=== PATIENT | female | born 1985 | race Caucasian/White ===

== ENCOUNTER 2017-09-27 23:15 | Emergency (ER) | payer OTHER, SELFPAY | END 2017-09-27 23:25 | disposition left against medical advice (07) | LOC: ER 23:38 | PROVIDERS: Emergency Provider Emergency Medicine | DX: Z53.29 Procedure and treatment not carried out because of patient's decision for other reasons (principal) | CPT/HCPCS: 99211 ==

== ENCOUNTER 2019-02-12 12:24 | Emergency (ER) | payer OTHER, SELFPAY ==
--- NOTE | 2019-02-12 12:32 | CT_ITS ---
CT abdomen pelvis wo con CLINICAL HISTORY: Hematuria, history of renal stones, left-sided abdominal pain TECHNIQUE: Axial images obtained with sagittal and coronal reformats. All CT scans at the facility use one or more dose reduction, viz: automated exposure control, ma/kV adjustment per patient size (including targeted exams where dose is matched to indication, i.e. head), or iterative reconstruction technique. COMPARISON: CT scan abdomen pelvis stone protocol 12/05/2018 PROCEDURE: Oral Contrast:None IV Contrast: 0 ml IV Isovue Optiray 350 was injected intravenously. FINDINGS: Lung bases: Clear and there is no pleural fluid ABDOMEN: Liver: There is mild generalized hepatomegaly basically stable from previous studies. There are no focal lesions. Gallbladder: Postcholecystectomy Pancreas: No masses or peripancreatic fluid collections. Spleen: Unremarkable. Adrenals: Unremarkable Kidneys/ureters: The kidneys are normal size. Again noted is a small 2 to 3 mm nonobstructing calculus lower pole left kidney. There is no hydronephrosis of either kidney. Stomach bowel: The stomach and small bowel appear normal. There is a moderately large amount stool throughout the colon. Peritoneum: No abnormal fluid collections. No obvious inflammatory changes. Lymph nodes: No enlarged lymph nodes apparent. Vasculature: No evidence of abdominal aortic aneurysm. No retroperitoneal hemorrhage evident. Bones: Unremarkable appearing bony structures. No lytic or blastic changes. No obvious fractures. PELVIS: Reproductive: The uterus is normal in size. Again noted is the exophytic mass extending off the right side of the uterus slightly hyperdense when compared to the uterine density but likely representing a fibroid. Bladder: Partially decompressed, there is no free fluid in the cul-de-sac. Appendix: I do not definitely identify the appendix but there are no pericecal inflammatory changes. IMPRESSION: 1. Stable generalized hepatomegaly 2. Tiny nonobstructing calculus lower pole left kidney 3. Stable slightly hyperdense mass arising from and/or abutting the right lateral wall the uterus and likely an exophytic fibroid
[2019-02-12 12:45] VITALS: BP 195/123; PULSE 101; RESP 18; TEMP 36.7; O2SAT 96; BMI 54.1
--- NOTE | 2019-02-12 12:45 | [facility].EDGENADL ---
ED Disposition Clinical Impression: Flank pain, Hematuria, UTI (urinary tract infection), Flank pain, acute Disposition: Home, Self-Care Condition on Discharge: Good Instructions: Urinary Tract Infection, DI for Urinary Tract Infection (UTI) Prescriptions: cephALEXin [Keflex 500mg Cap] 1,000 mg PO BID 7 Days #28 cap Hydrocodone/Acetaminophen [[place] 7.5-325 Tablet] 1 tab PO TID PRN 3 Days #8 tab PRN Reason: Moderate Pain Referrals: Provider,MD Ian [Primary Care Provider] - Leroy Goodman MD [Staff Physician] - Time of Disposition: 14:11 - Critical Care Critical Care Time: No Attestation: On 02/12/19, the high probability of a clinically significant, sudden or life threatening deterioration of the following system(s) required my full and direct attention, intervention and personal management. The time I documented below is in addition to time spent performing reported procedures but includes the following listed in this critical care notation. Medical Decision Making - Medical Records Medical records reviewed: Yes: I reviewed the patient's medical records. - Bryce Inquiry Pt receiving controlled substance: No Bryce was queried for this patient: No Vital Signs: 02/12/19 12:45 02/12/19 13:59 Temperature 98.0 F Temperature Source Oral Pulse Rate [Left Radial] 101 H 98 H Respiratory Rate 18 Blood Pressure [Right Arm] 195/123 H 164/99 H Blood Pressure Mean [Right Arm] 147 120 Blood Pressure Source [Right Arm] Automatic Cuff Blood Pressure Position [Right Arm] Sitting 02 Sat by Pulse Oximetry 96 95 Oxygen Delivery Method Room Air - Lab Data Lab results reviewed: Yes: I reviewed the patient's lab results. Lab Results 02/12/19 10:40: Urine Color Red, Urine Appearance Turbid, Urine pH 6.5, Ur Specific [place] 1.010, Urine Protein 2+, Urine Glucose (UA) Negative, Urine Ketones Negative, Urine Blood 3+, Urine Nitrate Positive, Urine Bilirubin Negative, Urine Urobilinogen 0.2, Ur Leukocyte Esterase Trace 02/12/19 12:40: Urine HCG, Qual Negative 02/12/19 12:40: WBC 5.3, RBC 4.17 L, Hgb 10.4 L, Hct 34.2 L, MCV 82.1, MCH 24.9 L, MCHC 30.4 L, RDW 16.7, Plt Count 316, MPV 7.8, Neut % (Auto) 54.7, Lymph % (Auto) 35.3, [place] % (Auto) 6.4, Eos % (Auto) 2.9, Baso % (Auto) 0.7, Neut # (Auto) 2.9, Lymph # (Auto) 1.9, [place] # (Auto) 0.3, Eos # (Auto) 0.2, Baso # (Auto) 0.0 02/12/19 12:40: Sodium 140, Potassium 4.2, Chloride 103, Carbon Dioxide 22, Anion Gap 19.2 H, BUN 15, Creatinine 0.69, Estimated Creat Clear 100, Estimated GFR 98, Est GFR ( Amer) 119, Glucose 234 H, Calcium 8.5 Result diagrams: 02/12/19 12:40 02/12/19 12:40 Orders (Tests/Meds): ED MEDICATIONS Discontinued Medications Generic Name Dose Route Start Last Admin Trade Name Freq PRN Reason Stop Dose Admin Morphine Sulfate 4 mg 02/12/19 12:43 02/12/19 13:26 Morphine 4mg/Ml Syringe IV 02/12/19 12:44 4 mg ONCE ONE Administration Ondansetron HCl 4 mg 02/12/19 12:43 02/12/19 13:27 Zofran 4mg/2ml Vial IV 02/12/19 12:44 4 mg ONCE ONE Administration ORDERS Category Date Time Status UA [Urinalysis and Microscopic] Stat Lab 02/12/19 10:40 Results General Adult HPI - General Stated complaint: Severe pain in left side; blood in urine Time Seen by Provider: 02/12/19 12:45 Mode of Arrival: Ambulatory Source of Information: Patient Limitations: No Limitations - History of Present Illness HPI narrative: left flank pain, difficulty urinating, bloody urine . Appears to be on menses. States she's had kidney stones but previus CT's here show only nephrocalcinosis - Related Data Home Medications Medication Instructions Recorded Confirmed Allopurinol [Allopurinol 300mg 300 mg PO DAILY 07/12/18 08/27/18 tablet] Atorvastatin Calcium [Atorvastatin 20 mg PO DAILY 07/12/18 08/27/18 20mg Tab] Duloxetine HCl [Cymbalta] 60 mg PO DAILY 07/12/18 08/27/18 Fluoxetine HCl [Prozac] 40 mg PO D
--- NOTE | 2019-02-12 12:48 | ED_ITS ---
ED Disposition Clinical Impression: Flank pain, Hematuria, UTI (urinary tract infection), Flank pain, acute Disposition: Home, Self-Care Condition on Discharge: Good Instructions: Urinary Tract Infection, DI for Urinary Tract Infection (UTI) Prescriptions: cephALEXin [Keflex 500mg Cap] 1,000 mg PO BID 7 Days #28 cap Hydrocodone/Acetaminophen [[place] 7.5-325 Tablet] 1 tab PO TID PRN 3 Days #8 tab PRN Reason: Moderate Pain Referrals: Provider,MD Ian [Primary Care Provider] - Leroy Goodman MD [Staff Physician] - Time of Disposition: 14:11 - Critical Care Critical Care Time: No Attestation: On 02/12/19, the high probability of a clinically significant, sudden or life threatening deterioration of the following system(s) required my full and direct attention, intervention and personal management. The time I documented below is in addition to time spent performing reported procedures but includes the foll owing listed in this critical care notation. Medical Decision Making - Medical Records Medical records reviewed: Yes: I reviewed the patient's medical records. - Bryce Inquiry Pt receiving controlled substance: No Bryce was queried for this patient: No Vital Signs: 02/12/19 12:45 02/12/19 13:59 Temperature 98.0 F Temperature Source Oral Pulse Rate [Left Radial] 101 H 98 H Respiratory Rate 18 Blood Pressure [Right Arm] 195/123 H 164/99 H Blood Pressure Mean [Right Arm] 147 120 Blood Pressure Source [Right Arm] Automatic Cuff Blood Pressure Position [Right Arm] Sitting 02 Sat by Pulse Oximetry 96 95 Oxygen Delivery Method Room Air - Lab Data Lab results reviewed: Yes: I reviewed the patient's lab results. Lab Results 02/12/19 10:40: Urine Color Red, Urine Appearance Turbid, Urine pH 6.5, Ur Specific [place] 1.010, Urine Protein 2+, Urine Glucose (UA) Negative, Urine Ketones Negative, Urine Blood 3+, Urine Nitrate Positive, Urine Bilirubin Negative, Urine Urobilinogen 0.2, Ur Leukocyte Esterase Trace 02/12/19 12:40: Urine HCG, Qual Negative 02/12/19 12:40: WBC 5.3, RBC 4.17 L, Hgb 10.4 L, Hct 34.2 L, MCV 82.1, MCH 24.9 L, MCHC 30.4 L, RDW 16.7, Plt Count 316, MPV 7.8, Neut % (Auto) 54.7, Lymph % (Auto) 35.3, [place] % (Auto) 6.4, Eos % (Auto) 2.9, Baso % (Auto) 0.7, Neut # (Auto) 2.9, Lymph # (Auto) 1.9, [place] # (Auto) 0.3, Eos # (Auto) 0.2, Baso # (Auto) 0.0 02/12/19 12:40: Sodium 140, Potassium 4.2, Chloride 103, Carbon Dioxide 22, Anion Gap 19.2 H, BUN 15, Creatinine 0.69, Estimated Creat Clear 100, Estimated GFR 98, Est GFR ( Amer) 119, Glucose 234 H, Calcium 8.5 Result diagrams: 02/12/19 12:40 02/12/19 12:40 Orders (Tests/Meds): ED MEDICATIONS Discontinued Medications Generic Name Dose Route Start Last Admin Trade Name Freq PRN Reason Stop Dose Admin Morphine Sulfate 4 mg 02/12/19 12:43 02/12/19 13:26 Morphine 4mg/Ml Syringe IV 02/12/19 12:44 4 mg ONCE ONE Administration Ondansetron HCl 4 mg 02/12/19 12:43 02/12/19 13:27 Zofran 4mg/2ml Vial IV 02/12/19 12:44 4 mg ONCE ONE Administration ORDERS Category Date Time Status UA [Urinalysis and Microscopic] Stat Lab 02/12/19 10:40 Results
[2019-02-12 12:59] LABS: Basophils % 0.7 % (0.1-2.0); Eosinophils # 0.2 K/mm3 (0.0-0.4); Eosinophils % 2.9 % (0.1-12.0); Hematocrit 34.2 % (37.0-47.0); Hemoglobin 10.4 g/dL (12.2-16.2); Lymphocytes # 1.9 K/mm3 (0.7-4.5); Lymphocytes % 35.3 % (10-50); Mean Corpuscular HGB Conc 30.4 g/dL (31.8-35.4); Mean Corpuscular Hemoglobin 24.9 pg (27.0-31.2); Mean Corpuscular Volume 82.1 fl (81-99); Mean Platelet Volume 7.8 fl (7.4-10.4); Monocytes # 0.3 K/mm3 (0.1-1.0); Monocytes % 6.4 % (1.7-9.3); Neutrophils # 2.9 K/mm3 (1.8-7.8); Neutrophils % 54.7 % (37.0-80.0); Platelet Count 316 K/mm3 (142-424); Red Blood Count 4.17 M/mm3 (4.20-5.40); Red Cell Distribution Width 16.7 % (11.5-17.5); White Blood Count 5.3 K/mm3 (4.8-10.8)
[2019-02-12 13:01] LABS: Anion Gap 19.2 mEq/L (5-15); Blood Urea Nitrogen 15 mg/dL (7-18); Calcium 8.5 mg/dL (8.5-10.1); Carbon Dioxide 22 mmol/L (21.0-32.0); Chloride 103 mmol/L (98-107); Creatinine Clearance Estimated 100 mL/min (50-200); Creatinine,Serum 0.69 mg/dL (0.55-1.02); Estimated Glomerular Filt Rate 98 ml/min (>60); GFR (African American) 119 ML/MIN (>60); Glucose 234 mg/dL (74-106); Potassium 4.2 mmoL/L (3.5-5.1); Sodium 140 mmol/L (136-145)
[2019-02-12 13:23] LABS: Urine Pregnancy, HCG Qual. Negative (Negative)
[2019-02-12 13:48] LABS: Microscopic, Urine URINE MICROSCOPIC (MICROSCOPIC)
[2019-02-12 13:57] LABS: Appearance,Urine TURBID (Clear); Bilirubin,Urine Negative (Negative); Blood, Urine 3+ (Negative); Color,Urine RED (Yellow); Glucose,Urine (UA) Negative (Negative); Ketones,Urine Negative (Negative); Leukocyte Esterase,Urine TRACE (Negative); Nitrate,Urine POSITIVE (Negative); PH,Urine 6.5 (5.0-8.5); Protein,Urine 2+ (Negative); Urobilinogen,Urine 0.2 EU/dl (0.2)
[2019-02-12 13:59] VITALS: BP 164/99; PULSE 98; O2SAT 95
[2019-02-12 14:16] LABS: RBC,Urine TNTC #/hpf (0-3); Squamous Epithelial Cell,Urine Occasional #/hpf (0-5); Transitional Epi Cells,Urine OCC #/lpf (0-3)
[2019-02-12 14:44] VITALS: BP 189/121; PULSE 101; O2SAT 93
[2019-02-12 14:53] VITALS: BP 156/87; PULSE 97; RESP 20; TEMP 37.1; O2SAT 94
== END 2019-02-12 14:55 | disposition home or self-care (01) ==
PROVIDERS: Emergency Provider Emergency Medicine
DX: N30.01 Acute cystitis with hematuria (principal); E11.9 Type 2 diabetes mellitus without complications; Z79.84 Long term (current) use of oral hypoglycemic drugs; Z88.0 Allergy status to penicillin
CPT/HCPCS: 74176; 80048; 81001; 81025; 85025; 96367; 96374; 96375; 99283; J2405

== ENCOUNTER 2020-03-15 01:33 | Emergency (ER) | payer OTHER, SELFPAY ==
[2020-03-15 01:50] VITALS: BP 182/113; PULSE 107; RESP 17; TEMP 36.5; O2SAT 94; BMI 54.9
--- NOTE | 2020-03-15 01:55 | CT_ITS ---
PROCEDURE: CT ABDOMEN PELVIS WO CON CLINICAL INDICATION: rule out kidney stone Left flank pain, history kidney COMPARISON: ABDPELW/O CT ABD PELVIS W/O CONTRAST from 11/04/2016 CT ABDOMEN PELVIS WO CON from 10/11/2019 TECHNIQUE: Axial images obtained with sagittal and coronal reformats. All CT scans at the facility use one or more dose reduction, viz: automated exposure control, ma/kV adjustment per patient size (including targeted exams where dose is matched to indication, i.e. head), or iterative reconstruction technique. FINDINGS: LOWER THORAX: No acute finding ABDOMEN & PELVIS: There is hepatomegaly with some scattered areas of fatty infiltration. The liver measures 33 cm transverse and 31 cm cephalad caudad. The spleen is enlarged at 16 cm. Pancreas and adrenal glands are unremarkable. There is a 6 mm stone along the lower pole of the left kidney. No hydronephrosis. No ureteral calculi. There is a solid-appearing 6.8 cm right adnexal mass similar to the previous exam. No intestinal obstruction or free air. No evidence of appendicitis or diverticulitis. No acute bony anomaly. IMPRESSION: 1. Hepatosplenomegaly with scattered areas of decreased attenuation which may be due to focal fatty infiltration somewhat less apparent than when compared to the previous exam 2. Stable masslike lesion in the right adnexal area. Pelvic ultrasound may provide further evaluation 3. No acute finding. Dictated by: Marbin Mo MD 03/15/2020 08:55 Electronically signed by Marbin Mo MD in [place] 03/15/2020 08:55
[2020-03-15 02:01] LABS: Microscopic, Urine URINE MICROSCOPIC (MICROSCOPIC)
[2020-03-15 02:03] LABS: Appearance,Urine CLEAR (Clear); Bilirubin,Urine Negative (Negative); Blood, Urine 3+ (Negative); Color,Urine RED (Yellow); Glucose,Urine (UA) Negative (Negative); Ketones,Urine Negative (Negative); Leukocyte Esterase,Urine Negative (Negative); Nitrate,Urine Negative (Negative); PH,Urine 8.5 (5.0-8.5); Protein,Urine 1+ (Negative); Specific Gravity, Urine 1.015 (1.005-1.030)
[2020-03-15 02:04] LABS: Urine Pregnancy, HCG Qual. Negative (Negative)
[2020-03-15 02:08] LABS: Bacteria,Urine 1+ /lpf; RBC,Urine TNTC #/hpf (0-3); WBC,Urine Occasional #/hpf (0-3)
[2020-03-15 02:22] VITALS: BP 168/107; PULSE 100; RESP 17; O2SAT 95
[2020-03-15 02:34] LABS: Basophils % 0.4 % (0.1-2.0); Eosinophils # 0.1 K/mm3 (0.0-0.4); Eosinophils % 1.5 % (0.1-12.0); Hematocrit 36.2 % (37.0-47.0); Hemoglobin 12.4 g/dL (12.2-16.2); Lymphocytes # 1.2 K/mm3 (0.7-4.5); Lymphocytes % 22.2 % (10-50); Mean Corpuscular HGB Conc 34.3 g/dL (31.8-35.4); Mean Corpuscular Hemoglobin 30.8 pg (27.0-31.2); Mean Corpuscular Volume 89.8 fl (81-99); Mean Platelet Volume 7.3 fl (7.4-10.4); Monocytes # 0.2 K/mm3 (0.1-1.0); Monocytes % 4.5 % (1.7-9.3); Neutrophils # 3.8 K/mm3 (1.8-7.8); Neutrophils % 71.5 % (37.0-80.0); Platelet Count 300 K/mm3 (142-424); Red Blood Count 4.03 M/mm3 (4.20-5.40); Red Cell Distribution Width 15.8 % (11.5-17.5); White Blood Count 5.2 K/mm3 (4.8-10.8)
[2020-03-15 02:40] LABS: Alanine Aminotransferase 63 U/L (12-78); Albumin Level 4.8 g/dl (3.5-5.0); Albumin/Globulin Ratio 1.4 (1.1-1.8); Alkaline Phosphatase 122 U/L (38-126); Anion Gap 19.9 mEq/L (5-15); Aspartate Amino Transferase 83 U/L (14-36); Bilirubin,Total 0.5 mg/dl (0.2-1.3); Blood Urea Nitrogen 13 mg/dl (7-17); Calcium 10.1 mg/dl (8.4-10.2); Carbon Dioxide 23 mmol/L (22.0-30.0); Chloride 96 mmol/L (98-107); Creatinine Clearance Estimated 171 mL/min (50-200); Estimated Glomerular Filt Rate 183 ml/min (>60); GFR (African American) 221 ML/MIN (>60); Globulin 3.5 g/dL (1.3-3.2); Glucose 354 mg/dl (74-100); INR 1.18 (0.9-1.1); Potassium 3.9 mmoL/L (3.5-5.1); Sodium 135 mmol/L (136-145); Total Protein,Serum 8.3 g/dl (6.3-8.2)
[2020-03-15 02:46] LABS: Amylase 36 U/L (30-110); Lipase 178 U/L (23-300)
[2020-03-15 02:53] VITALS: BP 188/131; PULSE 102; RESP 17; O2SAT 96
[2020-03-15 03:23] VITALS: BP 167/130; PULSE 103; RESP 17; O2SAT 96
--- NOTE | 2020-03-15 03:43 | [facility]H.EDBACK ---
ED Disposition Clinical Impression: Urinary tract infection Disposition: Home, Self-Care Condition on Discharge: Fair Instructions: DI for Urinary Tract Infection (UTI) Prescriptions: Sulfamethoxazole/Trimethoprim [Bactrim DS tablet] 1 each PO BID 7 Days #14 tab Prescription Printed Referrals: Provider,Referral, [Primary Care Provider] - Time of Disposition: 03:57 - Critical Care Critical Care Time: No Attestation: On 03/15/20, the high probability of a clinically significant, sudden or life threatening deterioration of the following system(s) required my full and direct attention, intervention and personal management. The time I documented below is in addition to time spent performing reported procedures but includes the following listed in this critical care notation. Medical Decision Making - Medical Records Medical records reviewed: Yes: I reviewed the patient's medical records. MR Comment: Patient reports left sided flank pain that started yesterday. Patient reports a hx of kidney stones. Labs are reviewed and show a urinary tract infection, but the abdomen pelvis shows no acute process markably enlarged liver. Michaela send her home on an antibiotic in this case Bactrim we will give a dose of Bactrim here now - Bryce Inquiry Pt receiving controlled substance: No Vital Signs: 03/15/20 01:50 03/15/20 02:22 03/15/20 02:53 Temperature 97.7 F Temperature Source Oral Pulse Rate [Right Brachial] 107 H 100 H 102 H Respiratory Rate 17 17 17 Blood Pressure [Right Arm] 182/113 H 168/107 H 188/131 H Blood Pressure Mean [Right Arm] 136 127 150 Blood Pressure Source [Right Arm] Automatic Cuff Automatic Cuff Automatic Cuff Blood Pressure Position [Right Arm] Sitting Sitting Sitting 02 Sat by Pulse Oximetry 94 L 95 96 Oxygen Delivery Method Room Air Room Air Room Air 03/15/20 03:23 Temperature Temperature Source Pulse Rate [Right Brachial] 103 H Respiratory Rate 17 Blood Pressure [Right Arm] 167/130 H Blood Pressure Mean [Right Arm] 142 Blood Pressure Source [Right Arm] Automatic Cuff Blood Pressure Position [Right Arm] Sitting 02 Sat by Pulse Oximetry 96 Oxygen Delivery Method Room Air - Lab Data Lab results reviewed: Yes: I reviewed the patient's lab results. Lab Results 03/15/20 01:50: Urine Color Red, Urine Appearance Clear, Urine pH 8.5, Ur Specific [place] 1.015, Urine Protein 1+, Urine Glucose (UA) Negative, Urine Ketones Negative, Urine Blood 3+, Urine Nitrate Negative, Urine Bilirubin Negative, Urine Urobilinogen 1.0, Ur Leukocyte Esterase Negative, Urine RBC Tntc, Urine WBC Occasional, Ur Squamous Epith Cells 3-5, Urine Bacteria 1+ 03/15/20 01:50: Urine HCG, Qual Negative 03/15/20 02:30: Amylase 36, Lipase 178 03/15/20 02:30: WBC 5.2, RBC 4.03 L, Hgb 12.4, Hct 36.2 L, MCV 89.8, MCH 30.8, MCHC 34.3, RDW 15.8, Plt Count 300, MPV 7.3 L, Neut % (Auto) 71.5, Lymph % (Auto) 22.2, [place] % (Auto) 4.5, Eos % (Auto) 1.5, Baso % (Auto) 0.4, Neut # (Auto) 3.8, Lymph # (Auto) 1.2, [place] # (Auto) 0.2, Eos # (Auto) 0.1, Baso # (Auto) 0.0 03/15/20 02:30: Sodium 135 L, Potassium 3.9, Chloride 96 L, Carbon Dioxide 23, Anion Gap 19.9 H, BUN 13, Creatinine 0.40 L, Estimated Creat Clear 171, Estimated GFR 183, Est GFR ( Amer) 221, Glucose 354 H, Calcium 10.1, Total Bilirubin 0.5, AST 83 H, ALT 63, Alkaline Phosphatase 122, Total Protein 8.3 H, Albumin 4.8, Globulin 3.5 H, Albumin/Globulin Ratio 1.4 03/15/20 02:30: PT 12.0 H, INR 1.18 H Result diagrams: 03/15/20 02:30 03/15/20 02:30 Orders (Tests/Meds): ED MEDICATIONS Generic Name Dose Route Start Last Admin Trade Name Freq PRN Reason Stop Dose Admin Sodium Chloride 1,000 mls @ 999 mls/hr 03/15/20 02:00 03/15/20 03:34 Sod Chlor 0.9% 1000ml Bag IV 03/15/20 03:00 999 mls/hr .[id number] KENISHA Administration Discontinued Medications Generic Name Dose Route Start Last Admin Trade Name Freq PRN Reason Stop Dose Admin Morphine Sulfate
[2020-03-15 03:54] VITALS: BP 190/109; PULSE 105; RESP 18; TEMP 36.5; O2SAT 96
== END 2020-03-15 04:12 | disposition home or self-care (01) ==
PROVIDERS: Emergency Provider Emergency Medicine
DX: N30.00 Acute cystitis without hematuria (principal); Z87.442 Personal history of urinary calculi; K21.9 Gastro-esophageal reflux disease without esophagitis; I10 Essential (primary) hypertension; E78.5 Hyperlipidemia, unspecified; E11.9 Type 2 diabetes mellitus without complications; Z79.899 Other long term (current) drug therapy; Z88.0 Allergy status to penicillin; Z88.6 Allergy status to analgesic agent
CPT/HCPCS: 74176; 80053; 81001; 81025; 82150; 83690; 85025; 85610; 96365; 96375; 99283; J2405